=== PATIENT | female | born 1980 | race Hispanic/Latino ===

== ENCOUNTER 2016-11-29 17:57 | Emergency (ER) | payer OTHER ==
[~2016-11-29] VITALS: Ht 162.6 cm; Wt 119.0 kg
[~2016-11-29 17:57] MED LIST: FIORICET 50-321 EAC1 PO; FIORICET,ESG1 TABLET PO; PERCOCET 5/31 TABLET PO; TOPAMAX; TOPAMAX25 MG PO
[2016-11-29] MEDS ORDERED: K-DUR10 MEQ PO (18:31)
[2016-11-29 20:13] LABS: CHLORIDE 104 mEq/L (99-109); POTASSIUM 3.5 mEq/L (3.7-5.4); SODIUM 140 mEq/L (136-147)
[2016-11-29 20:15] LABS: GLUCOSE 91 mg/dL (70-99)
[2016-11-29 20:16] LABS: TROP-I INTERPRETATION NEGATIVE; TROPONIN-I < 0.01 ng/mL (0.0-0.30)
[2016-11-29 20:17] LABS: ANION GAP 10 MEQ/L (2-14); TOTAL BILIRUBIN 0.5 mg/dL (0.0-1.0)
[2016-11-29 20:19] LABS: ALKALINE PHOSPHATASE 75 IU/L (3-129); GFR ESTIMATE (CALCULATED) > 59 mL/min/
[2016-11-29 20:20] LABS: UREA NITROGEN (BUN) 6 mg/dL (9-23)
[2016-11-29 20:23] LABS: LIPASE 18 U/L (1.0-51.0)
[2016-11-29 20:55] LABS: EOSINOPHIL (%) 2.3 % (0-5); EOSINOPHIL COUNT 0.2 K/uL (0-0.3); HEMATOCRIT 37.8 % (36.0-46.0); IMMATURE GRANULOCYTE (%) 0.4 % (0.0-0.7); INSTRUMENT ABS NEUTROPHIL CT 4.2 K/uL; LYMPHOCYTE COUNT 3.2 K/uL (1.0-2.8); MCH 28.2 PG (29.0-34.0); MCV 88.1 FL (83-99); MEAN PLAT.VOLUME 10.1 uM^3 (9.5-12.4); MONOCYTE (%) 5.5 % (3-12); MONOCYTE COUNT 0.5 K/uL (0-0.8); NEUTROPHIL (%) 51.8 % (45-76); NEUTROPHIL COUNT 4.2 K/uL (1.8-6.4); PLATELET COUNT 288 K/uL (156-360); RBC DIS.WIDTH-CV 13.4 % (11.8-14.6); RBC DIS.WIDTH-SD 43.6 % (39-53); RED BLOOD COUNT 4.29 M/uL (3.80-5.20); WHITE BLOOD COUNT 8.1 K/uL (4.1-10.2)
[2016-11-29 21:22] LABS: ADD MIUA? YES; BILIRUBIN NEGATIVE; BLOOD NEGATIVE; COLOR YELLOW ((YELLOW)); GLUCOSE (STRIP) NEGATIVE; KETONES NEGATIVE; LEUKOCYTES NEGATIVE; NITRITE NEGATIVE; PROTEIN (STRIP) NEGATIVE; UROBILINOGEN 0.2 MG/DL (0.2-1.0)
[2016-11-29 21:28] LABS: BACTERIA NONE SEEN /HPF; EPITHELIAL CELLS 1+ /HPF; MUCUS 1+ /LPF; RED BLOOD CELLS 0-5 /HPF (0-5); UCUL ADDED? NO; WHITE BLOOD CELLS 0-5 /HPF (0-5)
[2016-11-29 22:00] VITALS: BP 133/84
== END 2016-11-29 22:02 | disposition home or self-care (01) ==
LOC: RME 17:57 → EME 17:57 → RME 22:02
PROVIDERS: Physician Assistant
DX: R11.2 Nausea with vomiting, unspecified (principal); R19.7 Diarrhea, unspecified; E87.6 Hypokalemia; Z90.710 Acquired absence of both cervix and uterus
CPT/HCPCS: 80053; 81003; 83690; 84484; 85025; 87493; 93005; 99281; 99285; J2405